=== PATIENT | female | born 1980 | race Caucasian/White ===

== ENCOUNTER → 2018-03-01 | Outpatient (CLI) | payer OTHER ==
--- NOTE | 2018-03-01 12:58 | MR ---
EXAMINATION TYPE: MR brain wo con DATE OF EXAM: 03/01/2018 COMPARISON: NONE HISTORY: Migraine T1-weighted sagittal, T2, FLAIR, and diffusion axial, and T2 coronal coronal views of the brain are s ubmitted. There is no evidence of acute ischemia. The ventricles, basal cisterns, and sulci overlying the conv exities are consistent with the patient's age. There is no mass effect. Craniocervical junction maintained. Sella turcica has a normal appearance. No cerebellopontine angle mass. Changes of chronic sinusitis noted. White matter: There are approximately 5 focal areas of abnormal signal involving the frontal white ma tter bilaterally which are nonspecific. No callosal lesions. No lesions perpendicular to the ventricu lar system. No subcortical lesions. IMPRESSION: 1. No acute intracranial process. 2. Changes of chronic sinusitis. 3. Minimal nonspecific white matter changes can be seen with migraine headaches. Other etiologies gayatri an remote microvascular ischemia or demyelinating process not entirely excluded correlate clinically.
== END | disposition home or self-care (01) ==
LOC: RADMRIMAIN 12:00
PROVIDERS: ATTEND Psychiatry & Neurology Neurology
DX: G43.909 Migraine, unspecified, not intractable, without status migrainosus (principal); R90.89 Other abnormal findings on diagnostic imaging of central nervous system
CPT/HCPCS: 70551

== ENCOUNTER → 2019-02-07 | Day surgery (SDC) | payer OTHER ==
[2019-02-03 13:19] VITALS: BMI 27.8
[~2019-02-07] MED LIST: LACTATED RINGERS 1,000 ML IV SCH; LIDOCAINE 1% INJ 10MG/ML (20 ML MDV) ONE; PROPOFOL 10 MG/ML 20 ML VIAL IV ONE
[2019-02-07 08:31] VITALS: RESP 16; TEMP 98.5
--- NOTE | 2019-02-07 09:42 | P.PCN ---
Date of Procedure: 02/07/19 Procedure(s) Performed: Procedure: Esophagogastroduodenoscopy and biopsy. Preoperative diagnosis: Gastroesophageal reflux symptoms not responding to therapy. Postoperative diagnosis: 1. Small sliding hiatal hernia with no obvious esophagitis or complicated reflux disease. 2. Mild antral gastritis. 3. Bi opsies obtained from the duodenum, antrum and esophagus. Preparation and sedation: Was provided by anesthesia. Brief clinical history: The patient is a 38-year-old female was been having issues with burping and globus sensation and reflux type symptoms for the last 2 years not responding to medical therapy. There is history of food ALLERGY to shellfish and history of sinus surgery. This evaluation is to assess for esophagitis, complicated reflux disease or other pathology. Procedure: With the patient on her left lateral decubitus position and after informed consent and adequate sedation, the Olympus GIF H119 video upper endoscope was used and was advanced under direct vision through the cricopharyngeus down the esophagus. GE junction was around 42-43 cm from the incisors and there was a small sliding hiatal hernia but no obvious esophagitis or complicated reflux disease. The endoscope was then passed into the stomach which was insufflated with air and inspected in detail including the retroflex view in the cardia. There was some mottling and erythema in the antrum but no ulcers or erosions. Pyloric channel, duodenal bulb, post bulbar area and descending duodenum appeared within normal limits. I obtained biopsies from the duodenum, antrum and esophagus then the endoscope was withdrawn. The patient tolerated the procedure well. Plan: The patient was reassured. Will await biopsy results and make further plans based on her course and biopsy results. I will keep you updated on her progress.
[2019-02-07 10:38] VITALS: BP 102/73; PULSE 76
== END | disposition home or self-care (01) ==
LOC: ORWHC2ENDO 08:03
DX: K21.9 Gastro-esophageal reflux disease without esophagitis (principal); K29.50 Unspecified chronic gastritis without bleeding; K44.9 Diaphragmatic hernia without obstruction or gangrene; Z91.013 Allergy to seafood; E07.9 Disorder of thyroid, unspecified; Z79.890 Hormone replacement therapy; Z79.899 Other long term (current) drug therapy
CPT/HCPCS: 81025; 88305; 43239; J2001; J2704

== ENCOUNTER → 2019-06-13 | Outpatient (CLI) | payer OTHER ==
--- NOTE | 2019-06-14 11:48 | MM ---
Reason for exam: screening (asymptomatic). Last mammogram was performed 3 years and 8 months ago. History: Patient is nulliparous. Benign US biopsy breast VAD LT of the left breast, October 15, 2015. Benign excisional biopsy of the right breast, 1994. Took progesterone for 1 year. Physical Findings: A clinical breast exam by your physician is recommended on an annual basis and results should be correlated with mammographic findings. MG Screening Mammo w CAD Bilateral CC and MLO view(s) were taken. Prior study comparison: October 01, 2015, bilateral MG 3d diag mammo w/cad [facility]. The breast tissue is heterogeneously dense. This may lower the sensitivity of mammography. No suspicious abnormality. No significant changes when compared with prior studies. ASSESSMENT: Negative, BI-RAD 1 RECOMMENDATION: Routine screening mammogram of both breasts in 1 year.
== END | disposition home or self-care (01) ==
LOC: RADMAMWWP 11:36
PROVIDERS: ATTEND Obstetrics & Gynecology
DX: Z12.31 Encounter for screening mammogram for malignant neoplasm of breast (principal)
CPT/HCPCS: 77067

== ENCOUNTER → 2019-12-05 | Outpatient (CLI) | payer OTHER ==
--- NOTE | 2019-12-05 15:54 | US ---
EXAMINATION TYPE: US thyroid st tissue head/neck DATE OF EXAM: 12/05/2019 COMPARISON: NONE CLINICAL HISTORY: E04.1 Thyroid Nodule. follow up exam, known Deuce's, on meds GLAND SIZE: Right Lobe: 4.7 x 1.6 x 1.9 cm Overall Parenchyma: heterogenous Left Lobe: 5.3 x 1.5 x 1.8 cm Overall Parenchyma: heterogeneous Isthmus Thickness: 0.4 cm There is diffuse hypervascularity of the thyroid gland. NODULES RIGHT: # of nodules measured on right: 0 LEFT: # of nodules measured on left: 0 ISTHMUS: # of nodules measured in the isthmus: 0 Bilateral neck scanned, no evidence of lymphadenopathy. IMPRESSION: Diffusely heterogenous and hypervascular thyroid gland. Correlate for acute on chronic th yroiditis.
== END | disposition home or self-care (01) ==
LOC: RADUSWWP 15:15
PROVIDERS: ATTEND Family Medicine
DX: E07.89 Other specified disorders of thyroid (principal)
CPT/HCPCS: 76536

== ENCOUNTER 2020-04-22 23:52 | Emergency (ER) | payer OTHER ==
[2020-04-22 23:58] VITALS: BP 160/97; PULSE 75; RESP 16; TEMP 98.1
[2020-04-23] MEDS ORDERED: LIDOCAINE 1% INJ 10MG/ML (20 ML MDV) SQ STA (00:22)
[2020-04-23] MEDS ORDERED: DIPH,PERTUS(ACELL)TETVAC-LF 0.5 ML VIAL IM ONE (00:22)
--- NOTE | 2020-04-23 00:26 | ED ---
General Adult HPI - General Chief complaint: Wound/Laceration Stated complaint: RT finger lac Time Seen by Provider: 04/23/20 00:02 Source: patient, RN notes reviewed, old records reviewed Mode of arrival: ambulatory Limitations: no limitations - History of Present Illness Initial comments: 39-year-old female patient with no pertinent past medical history presents ED for chief complaint of laceration to second digit on right hand. Patient reports that she was cleaning up in a kitchen. She reports that she grabbed a clean pizza cutter and while she was moving and she actually brought it across the second digit of her right hand. Patient does have a semi-laceration to the dorsal aspect. Does not know date of last tetanus. Has full active range of motion sensation. Denies any other complaints. Systemic: Pt denies fatigue, fever/chills, rash. Pt denies weakness, night sweats, weight loss. Neuro: Pt denies headache, visual disturbances, syncope or pre-syncope. HEENT: Pt denies ocular discharge or irritation, otalgia, rhinorrhea, pharyngitis or notable lymphadenopathy. Cardiopulmonary: Pt denies chest pain, SOB, heart palpitations, dyspnea on exertion. Abdominal/GI: Pt denies abdominal pain, n/v/d. : Pt denies dysuria, burning w/ urination, frequency/urgency. Denies new onset urinary or bowel incontinence. MSK: Pt denies myalgia, loss of strength or function in extremities. Neuro: Pt denies new onset weakness, paresthesias. - Related Data Home Medications Medication Instructions Recorded Confirmed Control (Unknown Name) 1 tablet PO DAILY 02/03/19 Galcanezumab-Gnlm [Emgality] 120 mg SQ Q30D 02/03/19 02/07/19 Levothyroxine Sodium [Levoxyl] 88 mcg PO DAILY 02/03/19 02/07/19 SUMAtriptan SUCCINATE [Imitrex] 50 mg PO DAILY PRN 02/03/19 02/07/19 Previous Rx's Medication Instructions Recorded EPINEPHrine (Auto Inject) [Epipen] 0.3 mg IM ONCE PRN #1 syringe 01/11/15 Allergies Allergy/AdvReac Type Severity Reaction Status Date / Time iodine Allergy Anaphylaxis Verified 02/07/19 08:25 shellfish derived [Shellfish] Allergy Anaphylaxis Verified 04/08/19 08:25 Review of Systems ROS Statement: Those systems with pertinent positive or pertinent negative responses have been documented in the HPI. ROS Other: All systems not noted in ROS Statement are negative. Past Medical History Past Medical History: GERD/Reflux, Thyroid Disorder Additional Past Medical History / Comment(s): MIGRAINE HEADACHE, History of Any Multi-Drug Resistant Organisms: None Reported Past Surgical History: No Surgical Hx Reported Additional Past Surgical History / Comment(s): LAPAROSCOPIC EXAM, SINUS SURGERY Past Psychological History: No Psychological Hx Reported Smoking Status: Former smoker - Past Family History Mother Family Medical History: No Reported History General Exam - General Exam Comments Initial Comments: Constitutional: NAD, AOX3, Pt has pleasant affect. HEENT: NC/AT, trachea midline. External ears appear normal, without discharge. Mucous membranes moist. Eyes PERRLA, EOM intact. There is no scleral icterus. No pallor noted. Cardiopulmonary: RRR, no murmurs, rubs or gallops, no JVD noted. Lungs CTAB in anterior and posterior lozano. No peripheral edema. Neuro: CN II-XII grossly intact. No nuchal rigidity. No raccon eyes MSK: 1.5 cm laceration to the dorsal aspect second digit of the right hand. Full range of motion of digit. Sensation is intact. Capillary refill less than 2 seconds. Wound is vigorously irrigated. Approximately 3 simple interrupted sutures. Neurovascular intact before and after suture placement. Radial pulse +2. Limitations: no limitations Course Vital Signs 04/22/20 23:54 Temperature 98.1 F Pulse Rate 75 Respiratory 16 Rate Blood Pressure 160/97 O2 Sat by Pulse 100 Oximetry Procedures - Laceration Laceration #1 Consent Obtained: verbal consent Indication: laceration Site: hand (2nd digit R hand dorsal aspect) Size (cm): 1 (1.5) Depth: simple, single layer Pre-repair: wound explored, irrigated extensively, deep structures intact (No ligamentous osseous involvement or foreign body.) Type of Sutures: nylon Size of Sutures: 5-0 Number of Sutures: 3 Technique: simple, interrupted Patient Tolerated Procedure: well, no complications Medical Decision Making - Medical Decision Making 39-year-old female patient with seizure evaluation laceration. Patient will tender stable, afebrile. Laceration was irrigated and approximated. Full active range of motion for and after procedure. Tetanus is updated. Patient will be discharged with outpatient follow-up with primary care provider and return precautions. Case discussed with Dr. Gant. Disposition Clinical Impression: Laceration Disposition: HOME SELF-CARE Condition: Stable Instructions (If sedation given, give patient instructions): Care For Your Stitches (ED), Laceration (ED) Additional Instructions: Please return for suture removal: Hand: 7-10 days Please monitor for signs and symptoms of infection including: redness, warmth, drainage, discharge. Please return to ED if these signs or symptoms occur, new signs or symptoms develop or if condition worsens in anyway. Follow-up with primary care provider in 1 to 2 days. Is patient prescribed a controlled substance at d/c from ED?: No Referrals: Con Allison MD [Primary Care Provider] - 1-2 days
== END 2020-04-23 00:58 | disposition home or self-care (01) ==
LOC: EC 23:52
DX: S61.210A Laceration without foreign body of right index finger without damage to nail, initial encounter (principal); G43.909 Migraine, unspecified, not intractable, without status migrainosus; E07.9 Disorder of thyroid, unspecified; Z79.890 Hormone replacement therapy; Z79.3 Long term (current) use of hormonal contraceptives; Z23 Encounter for immunization; Z87.891 Personal history of nicotine dependence; Z91.048 Other nonmedicinal substance allergy status; Z91.013 Allergy to seafood; W26.0XXA Contact with knife, initial encounter; Y93.89 Activity, other specified; Y92.000 Kitchen of unspecified non-institutional (private) residence as the place of occurrence of the external cause
CPT/HCPCS: 90715; 90471; 99283; 12001; J2001

== ENCOUNTER 2020-05-13 18:11 | Emergency (ER) | payer OTHER ==
[2020-05-13 18:17] VITALS: BP 167/96; PULSE 77; RESP 20; TEMP 98.8
[2020-05-13] MEDS ORDERED: DIPH,PERTUS(ACELL)TETVAC-LF 0.5 ML VIAL IM ONE (18:34)
[2020-05-13] MEDS ORDERED: LIDOCAINE 1% INJ 10MG/ML (20 ML MDV) SQ ONE (18:47)
--- NOTE | 2020-05-13 18:52 | ED ---
Wound/Laceration HPI - General Chief Complaint: Wound/Laceration Stated Complaint: toe injury Time Seen by Provider: 05/13/20 18:24 Source: patient, RN/MD, RN notes reviewed, old records reviewed Mode of arrival: ambulatory Limitations: no limitations - History of Present Illness Initial Comments: Patient is a 39-year-old female who presents emergency department today with a laceration between the third and fourth left toe after jumping off the boat and her toe caught on the ladder. Patient reports that she felt her toe separate. She felt instant pain when she was in the water. Patient states she took her foot out and noted swelling over the fourth toe and laceration deformity between the toes. She reports that she is able to move the toes of the time and has sensation. - Related Data Home Medications Medication Instructions Recorded Confirmed Control (Unknown Name) 1 tablet PO DAILY 02/03/19 Galcanezumab-Gnlm [Emgality] 120 mg SQ Q30D 02/03/19 02/07/19 Levothyroxine Sodium [Levoxyl] 88 mcg PO DAILY 02/03/19 02/07/19 SUMAtriptan SUCCINATE [Imitrex] 50 mg PO DAILY PRN 02/03/19 02/07/19 Previous Rx's Medication Instructions Recorded EPINEPHrine (Auto Inject) [Epipen] 0.3 mg IM ONCE PRN #1 syringe 01/11/15 Cephalexin [Keflex] 500 mg PO Q8HR #21 cap 05/13/20 Allergies Allergy/AdvReac Type Severity Reaction Status Date / Time iodine Allergy Anaphylaxis Verified 05/13/20 18:18 shellfish derived [Shellfish] Allergy Anaphylaxis Verified 05/13/20 18:18 Review of Systems ROS Statement: Those systems with pertinent positive or pertinent negative responses have been documented in the HPI. ROS Other: All systems not noted in ROS Statement are negative. Past Medical History Past Medical History: GERD/Reflux, Thyroid Disorder Additional Past Medical History / Comment(s): MIGRAINE HEADACHE, History of Any Multi-Drug Resistant Organisms: None Reported Past Surgical History: No Surgical Hx Reported Additional Past Surgical History / Comment(s): LAPAROSCOPIC EXAM, SINUS SURGERY Past Psychological History: No Psychological Hx Reported Smoking Status: Former smoker Past Alcohol Use History: None Reported Past Drug Use History: None Reported - Past Family History Mother Family Medical History: No Reported History General Exam - General Exam Comments Initial Comments: 39 year old female, no distress. Limitations: no limitations General appearance: alert, in no apparent distress Head exam: Present: atraumatic, normocephalic, normal inspection Eye exam: Present: normal appearance, PERRL, EOMI. Absent: scleral icterus, conjunctival injection, periorbital swelling ENT exam: Present: normal exam, mucous membranes moist Neck exam: Present: normal inspection. Absent: tenderness, meningismus, lymphadenopathy Respiratory exam: Present: normal lung sounds bilaterally. Absent: respiratory distress, wheezes, rales, rhonchi, stridor Cardiovascular Exam: Present: regular rate, normal rhythm, normal heart sounds. Absent: systolic murmur, diastolic murmur, rubs, gallop, clicks GI/Abdominal exam: Present: soft, normal bowel sounds. Absent: distended, tenderness, guarding, rebound, rigid Extremities exam: Present: normal inspection, full ROM, normal capillary refill. Absent: tenderness, pedal edema, joint swelling, calf tenderness Left Lower Leg exam: Present: normal inspection, full ROM Ankle exam: Present: normal inspection, full ROM Foot/Toe exam: Present: laceration (linear laceration between 4th and 3rd toe). Absent: normal inspection Neurovascular tendon exam: Present: no vascular compromise Gait: observed and normal Back exam: Present: normal inspection Neurological exam: Present: alert, oriented X3, CN II-XII intact Course Vital Signs 05/13/20 18:15 Temperature 98.8 F Pulse Rate 77 Respiratory 20 Rate Blood Pressure 167/96 O2 Sat by Pulse 100 Oximetry Procedures - Laceration Laceration #1 Indication: laceration Site: foot (between 4th and 3rd toe) Size (cm): 3 Description: linear Depth: simple, single layer Anesthetic Used: lidocaine 1% Anesthesia Technique: local infiltration Amount (mls): 5 Pre-repair: wound explored, irrigated extensively Type of Sutures: nylon Size of Sutures: 5-0 Number of Sutures: 6 Technique: simple, interrupted Patient Tolerated Procedure: well, no complications Medical Decision Making - Medical Decision Making 39-year-old female presents response with a laceration over her left foot between the third and fourth toe after jumping off of a boat and catching her foot on the edge of the boat. Patient's laceration was cleaned and closed with 6 sutures. Patient has full range of motion of the toe. X-ray showed no fracture. Discussed putting the Patient on antibiotic to ensure no infection. Patient is agreeable treatment plan will comply. Discussed suture instruction. - Radiology Data Radiology results: report reviewed Neuro foot x-ray. No fracture. Disposition Clinical Impression: Toe laceration Disposition: HOME SELF-CARE Condition: Good Instructions (If sedation given, give patient instructions): Care For Your Stitches (ED), Laceration (ED) Additional Instructions: Please return to the emergency room in 8-10 days to have sutures removed. Please leave wound covered for the first 24-48 hours and then leave open to air after that time. Please use clean soap and water to clean the suture area to prevent scabbing over the top of your sutures. Please watch for any signs of infection which may include but not limited to increased pain, swelling, redness, fever or chills. Please return to the emergency room if any signs of infection do occur. Please return to the emergency room for any other concerns or complications. Prescriptions: Cephalexin [Keflex] 500 mg PO Q8HR #21 cap Is patient prescribed a controlled substance at d/c from ED?: No Referrals: Con Allison MD [Primary Care Provider] - 1-2 days Time of Disposition: 20:00
--- NOTE | 2020-05-13 19:18 | XR ---
EXAMINATION TYPE: XR foot complete LT DATE OF EXAM: 05/13/2020 COMPARISON: NONE HISTORY: Foot pain TECHNIQUE: 3 views FINDINGS: Metatarsals are intact. I see no fracture nor dislocation. Joint spaces are normal. IMPRESSION: Negative left foot exam. No fracture.
== END 2020-05-13 20:08 | disposition home or self-care (01) ==
LOC: EC 18:11
DX: S91.115A Laceration without foreign body of left lesser toe(s) without damage to nail, initial encounter (principal); E07.9 Disorder of thyroid, unspecified; G43.909 Migraine, unspecified, not intractable, without status migrainosus; Z87.891 Personal history of nicotine dependence; Z79.890 Hormone replacement therapy; Z79.899 Other long term (current) drug therapy; Z91.013 Allergy to seafood; Z91.041 Radiographic dye allergy status; W16.712A Jumping or diving from boat striking water surface causing other injury, initial encounter; Y93.39 Activity, other involving climbing, rappelling and jumping off; Y92.89 Other specified places as the place of occurrence of the external cause
CPT/HCPCS: 73630; 99283; J2001

== ENCOUNTER → 2020-08-13 | Outpatient (CLI) | payer OTHER ==
--- NOTE | 2020-08-14 14:11 | MM ---
Reason for exam: screening (asymptomatic). Last mammogram was performed 1 year and 2 months ago. History: Patient is nulliparous. Benign US biopsy breast VAD LT of the left breast, October 15, 2015. Benign excisional biopsy of the right breast, 1994. Took progesterone for 1 year. Physical Findings: A clinical breast exam by your physician is recommended on an annual basis and results should be correlated with mammographic findings. MG Screening Mammo w CAD Bilateral CC and MLO view(s) were taken. Prior study comparison: June 13, 2019, bilateral MG screening mammo w CAD. October 01, 2015, bilateral MG 3d diag mammo w/cad [facility]. The breast tissue is heterogeneously dense. This may lower the sensitivity of mammography. There is chronic nodularity bilaterally. No significant changes when compared with prior studies. ASSESSMENT: Benign, BI-RAD 2 RECOMMENDATION: Routine screening mammogram of both breasts in 1 year.
== END | disposition home or self-care (01) ==
LOC: RADMAMWWP 11:15
PROVIDERS: ATTEND Obstetrics & Gynecology
DX: Z12.31 Encounter for screening mammogram for malignant neoplasm of breast (principal)
CPT/HCPCS: 77067

== ENCOUNTER → 2020-10-22 | Outpatient (CLI) | payer OTHER ==
--- NOTE | 2020-10-22 11:24 | US ---
EXAMINATION TYPE: US abdomen complete DATE OF EXAM: 10/22/2020 COMPARISON: NONE CLINICAL HISTORY: R10.9 Abdominal Pain. On/off reflux and nausea x couple months EXAM MEASUREMENTS: Liver Length: 19.2 cm Gallbladder Wall: 0.1 cm CBD: 0.3 cm Spleen: 10.0 cm Right Kidney: 10.8 x 4.4 x 5.0 cm Left Kidney: 11.1 x 6.5 x 4.7 cm Pancreas: wnl Liver: enlarged, mildly course echotexture Gallbladder: wnl Evidence for sonographic Taveras's sign: no CBD: wnl Spleen: wnl Right Kidney: wnl Left Kidney: limited by overlying bowel gas, 0.4cm echogenic focus mid pole Upper IVC: wnl Abd Aorta: proximal and mid portions wnl, distal portion obscured by overlying midline bowel gas The intrahepatic portion of the IVC and proximal abdominal aorta are within normal limits. There is no evidence of cholelithiasis. Common bile duct is unremarkable. The visualized portions of the chapa creas are homogenous. The spleen is unremarkable. Kidneys are symmetric and free of hydronephrosis. No renal lesions are seen. IMPRESSION: Hepatomegaly with probable underlying hepatic fatty infiltration.
== END | disposition home or self-care (01) ==
LOC: RADUSWWP 10:37
PROVIDERS: ATTEND Family Medicine
DX: R16.0 Hepatomegaly, not elsewhere classified (principal)
CPT/HCPCS: 76700

== ENCOUNTER 2020-12-10 09:53 | Day surgery (SDC) | payer OTHER ==
[2020-12-06 14:44] VITALS: BMI 27.8
[~2020-12-10 09:53] MED LIST changes: -LIDOCAINE 1% INJ 10MG/ML (20 ML MDV) ONE; -PROPOFOL 10 MG/ML 20 ML VIAL IV ONE
[2020-12-10 10:24] VITALS: TEMP 97.7
[2020-12-10] MEDS ORDERED: LIDOCAINE 1% (10MG/ML) FOR IV START INTRADERMA ONE (10:24)
[2020-12-10] MEDS ORDERED: PROPOFOL 10 MG/ML 20 ML VIAL IV ONE (11:15)
[2020-12-10] MEDS ORDERED: LIDOCAINE 1% INJ 10MG/ML (20 ML MDV) ONE (11:15)
[2020-12-10 11:40] VITALS: RESP 16
--- NOTE | 2020-12-10 11:40 | P.PCN ---
Date of Procedure: 12/10/20 Description of Procedure: BRIEF HISTORY: Patient is a pleasant 40-year-old female presenting for outpatient esophagogastroduodenoscopy for evaluation of GERD. Patient reports a long- standing history of reflux which has worsened recently. She reports morning globus. Currently on omeprazole daily with famotidine at night.. PROCEDURE PERFORMED: Esophagogastroduodenoscopy with biopsy. PREOPERATIVE DIAGNOSIS: GERD, globus. ESTIMATED BLOOD LOSS: Minimal. IV sedation per anesthesia. PROCEDURE: After informed consent was obtained, the patient was brought into the endoscopy unit. IV sedation was administered by Anesthesia under continuous monitoring. Initially the Olympus GIF-190 video endoscope was inserted into the mouth. Esophagus intubated without any difficulty. It was gradually advanced into the stomach and duodenum and carefully examined. The bulb and the second part of the duodenum appeared normal, with biopsies taken. The scope at this time was withdrawn to the stomach, adequately insufflated with air, and upon careful examination, mucosa of the antrum, body, cardia and the fundus appeared normal, except for a moderate amount of food debris retained in the stomach as well as some mild scattered erythema in antrum and body suggestive of mild gastritis with biopsies taken. The scope was then withdrawn into the esophagus. The GE junction was located at 39 cm from the incisors and biopsied. The esophagus appeared normal. There were no erosions or ulcerations seen and the patient tolerated the procedure well. IMPRESSION: 1. Mild gastritis. 2. Moderate amount of retained food in the stomach. 3. Biopsies of the duodenum, antrum body and GE junction. RECOMMENDATIONS: The findings of this examination were discussed with the patient. Continue omeprazole daily and Pepcid at night. Continue other medications. GERD lifestyle modifications discussed including not eating 3 hours prior to bed, looking have her bed, and avoiding trigger foods. Given findings of retained food in the stomach, can consider gastric emptying study to rule out gastroparesis.
[2020-12-10 11:56] VITALS: BP 142/91; PULSE 64
== END 2020-12-10 12:45 | disposition home or self-care (01) ==
LOC: ORWHC2ENDO 09:53
PROVIDERS: ATTEND Internal Medicine
DX: K29.50 Unspecified chronic gastritis without bleeding (principal); K21.9 Gastro-esophageal reflux disease without esophagitis; E07.9 Disorder of thyroid, unspecified; G43.909 Migraine, unspecified, not intractable, without status migrainosus; Z98.890 Other specified postprocedural states; Z90.89 Acquired absence of other organs; Z79.890 Hormone replacement therapy; Z87.891 Personal history of nicotine dependence; Z79.899 Other long term (current) drug therapy; Z91.013 Allergy to seafood; Z91.048 Other nonmedicinal substance allergy status
CPT/HCPCS: 81025; 88305; 43239; J2001; J2704

== ENCOUNTER 2021-01-12 21:10 | Emergency (ER) | payer OTHER ==
[2021-01-12 21:14] VITALS: BP 140/84; PULSE 88; RESP 18; TEMP 99
[2021-01-12] MEDS ORDERED: HYDROmorphone 1 MG/ML 1 ML SYRINGE IVP STA (21:31)
[2021-01-12] MEDS ORDERED: CYCLOBENZAPRINE 10 MG TAB PO STA (21:31)
[2021-01-12] MEDS ORDERED: methylPREDNISolone SOD SUCCI 125 MG/2 ML VIAL IM STA (21:31)
--- NOTE | 2021-01-12 21:35 | ED ---
Back Pain HPI - General Chief Complaint: Back Pain/Injury Stated Complaint: Back pain Source: patient, RN notes reviewed Limitations: no limitations - History of Present Illness Initial Comments: Patient is a 40-year-old female that presents to emergency department complaining of lower back pain/tightness that radiates pain down both legs. She notes that she was on vacation for 2 weeks in [place] and walk on the beach is picking up seashells most the time in a bent over hunched state. She noted that she was also given unfamiliar bed. She noted that while in for she noted that she was having some back tightness and issues but just disregard them. She noted that she landed in the [place] last night at midnight area she noted that she does not have a history of sciatica or any back pain. She noted that today was the first day of work she is missing her life. Is in a moderate amount of pain and discomfort and would like some pain medication. She states the pain has been constant for last like 7-1/2 hours. He'll apply or she could walk from her bed to her bathroom without expressed excruciating pain. Her guest noted that when she up and walked after a few steps she couldn't walk due to pain caused by weightbearing. She denied any decrease in strength sensation numbness tingling chest pain shortness breath headache nausea vomiting diarrhea comes patient 50 chills. - Related Data Home Medications Medication Instructions Recorded Confirmed Galcanezumab-Gnlm [Emgality] 120 mg SQ Q30D 02/03/19 12/10/20 Levothyroxine Sodium [Levoxyl] 88 mcg PO DAILY 02/03/19 12/10/20 SUMAtriptan SUCCINATE [Imitrex] 50 mg PO DAILY PRN 02/03/19 12/10/20 Famotidine [Pepcid] 40 mg PO HS 12/06/20 12/10/20 Omeprazole 40 mg PO DAILY 12/06/20 12/10/20 Setlakin 1 tab PO DAILY 12/06/20 12/10/20 Previous Rx's Medication Instructions Recorded EPINEPHrine (Auto Inject) [Epipen] 0.3 mg IM ONCE PRN #1 syringe 01/11/15 Cyclobenzaprine [Flexeril] 5 mg PO TID 10 Days #30 tablet 01/12/21 predniSONE 50 mg PO DAILY #5 tab 01/12/21 Allergies Allergy/AdvReac Type Severity Reaction Status Date / Time iodine Allergy Anaphylaxis Verified 01/12/21 21:14 shellfish derived [Shellfish] Allergy Anaphylaxis Verified 01/12/21 21:14 Review of Systems ROS Statement: Those systems with pertinent positive or pertinent negative responses have been documented in the HPI. ROS Other: All systems not noted in ROS Statement are negative. Past Medical History Past Medical History: GERD/Reflux, Thyroid Disorder Additional Past Medical History / Comment(s): MIGRAINE HEADACHE, History of Any Multi-Drug Resistant Organisms: None Reported Past Surgical History: Tonsillectomy Additional Past Surgical History / Comment(s): LAPAROSCOPIC EXAM, SINUS SURGERY Past Anesthesia/Blood Transfusion Reactions: No Reported Reaction Past Psychological History: No Psychological Hx Reported Smoking Status: Former smoker Past Alcohol Use History: None Reported Past Drug Use History: None Reported - Past Family History Mother Family Medical History: No Reported History General Exam Limitations: no limitations General appearance: alert, in no apparent distress Head exam: Present: atraumatic, normocephalic, normal inspection Eye exam: Present: normal appearance, PERRL, EOMI. Absent: scleral icterus, conjunctival injection, periorbital swelling ENT exam: Present: normal exam, mucous membranes moist Neck exam: Present: normal inspection. Absent: tenderness, meningismus, lymphadenopathy Respiratory exam: Present: normal lung sounds bilaterally. Absent: respiratory distress, wheezes, rales, rhonchi, stridor Cardiovascular Exam: Present: regular rate, normal rhythm, normal heart sounds. Absent: systolic murmur, diastolic murmur, rubs, gallop, clicks GI/Abdominal exam: Present: soft, normal bowel sounds. Absent: distended, tenderness, guarding, rebound, rigid Extremities exam: Present: normal inspection, full ROM, normal capillary refill. Absent: tenderness, pedal edema, joint swelling, calf tenderness Neurological exam: Present: alert, oriented X3, CN II-XII intact Expanded Patient oriented to: Present: person, place, time Speech: Present: fluid speech Motor strength exam: RUE: 5, LUE: 5, RLE: 5, LLE: 5 Psychiatric exam: Present: normal affect, normal mood Skin exam: Present: warm, dry, intact, normal color. Absent: rash Course Vital Signs 01/12/21 21:11 Temperature 99.0 F Pulse Rate 88 Respiratory 18 Rate Blood Pressure 140/84 O2 Sat by Pulse 100 Oximetry Medical Decision Making - Medical Decision Making 40-year-old female complaining of low back pain which radiates down both legs. X-ray of the lumbar spine, 10 mg of Flexeril, 1 mg of Dilaudid, 125 mg of Solu- Medrol ordered. Case discussed with Dr. Nagel, patient to discharge home. - Radiology Data Radiology results: report reviewed, image reviewed Normal lumbar spine exam Disposition Clinical Impression: Bilateral sciatica, Spasm of muscle of lower back Disposition: HOME SELF-CARE Condition: Stable Instructions (If sedation given, give patient instructions): Acute Low Back Pain (ED) Additional Instructions: Please return to the Emergency Department if symptoms worsen or any other concerns. Follow-up with primary care in 2-4 days. Take prescription medications as directed. Avoid any strenuous activity, bending over or anything that makes the lower back hurt or tight. Prescriptions: Cyclobenzaprine [Flexeril] 5 mg PO TID 10 Days #30 tablet predniSONE 50 mg PO DAILY #5 tab Is patient prescribed a controlled substance at d/c from ED?: No Referrals: Con Allison MD [Primary Care Provider] - 1-2 days Time of Disposition: 22:21
[2021-01-12] MEDS ORDERED: ACET/COD 300 MG/30 MG STARTER PACK 6 TAB BTL PO STA (22:07)
--- NOTE | 2021-01-12 22:16 | XR ---
EXAMINATION TYPE: XR lumbar spine 2 or 3V DATE OF EXAM: 01/12/2021 COMPARISON: NONE HISTORY: Back pain TECHNIQUE: 3 views FINDINGS: Vertebra have normal spacing and alignment. Posterior elements are intact. There is no comp ression fracture. Sacroiliac joints are normal. IMPRESSION: Normal lumbar spine exam.
== END 2021-01-12 22:35 | disposition home or self-care (01) ==
LOC: EC 21:10
DX: M54.42 Lumbago with sciatica, left side (principal); M54.41 Lumbago with sciatica, right side; M62.830 Muscle spasm of back; K21.9 Gastro-esophageal reflux disease without esophagitis; E07.9 Disorder of thyroid, unspecified; Z90.09 Acquired absence of other part of head and neck; Z87.891 Personal history of nicotine dependence
CPT/HCPCS: 72100; 99283; 96374; 96372; J2930; J1170

== ENCOUNTER → 2021-12-09 | Outpatient (CLI) | payer OTHER ==
--- NOTE | 2021-12-10 11:19 | MM ---
Reason for exam: screening (asymptomatic). Last mammogram was performed 1 year and 4 months ago. History: Patient is nulliparous. Benign US biopsy breast VAD LT of the left breast, October 15, 2015. Benign excisional biopsy of the right breast, 1994. Took progesterone for 1 year. Physical Findings: A clinical breast exam by your physician is recommended on an annual basis and results should be correlated with mammographic findings. MG 3D Screening Mammo W/Cad Bilateral CC and MLO view(s) were taken. Prior study comparison: August 13, 2020, bilateral MG screening mammo w CAD. June 13, 2019, bilateral MG screening mammo w CAD. The breast tissue is heterogeneously dense. This may lower the sensitivity of mammography. Finding: There is an intermediate concern, suspicious 8 mm high density, oval mass in the upper outer quadrant of the right breast on MLO consistent with possible mass. ASSESSMENT: Incomplete: need additional imaging evaluation, BI-RAD 0 RECOMMENDATION: Ultrasound of the right breast. [facility] will attempt to contact patient to return for ultrasound.
== END | disposition home or self-care (01) ==
LOC: RADMAMWWP 14:21
PROVIDERS: ATTEND Family Medicine
DX: Z12.31 Encounter for screening mammogram for malignant neoplasm of breast (principal)
CPT/HCPCS: 77063; 77067

== ENCOUNTER → 2021-12-13 | Outpatient (CLI) | payer OTHER ==
--- NOTE | 2021-12-13 11:11 | USB ---
Reason for exam: additional evaluation requested from abnormal screening. History: Patient is nulliparous. Benign US biopsy breast VAD LT of the left breast, October 15, 2015. Benign excisional biopsy of the right breast, 1994. Took progesterone for 1 year. Physical Findings: Nurse did not find any significant physical abnormalities on exam. US Breast Workup Limited RT Right limited breast ultrasound including focal area of concern, retroareolar and axilla demonstrates no cystic or solid lesion seen. These results were verbally communicated with the patient and result sheet given to the patient on 12/13/21. ASSESSMENT: Negative, BI-RAD 1 RECOMMENDATION: Follow-up diagnostic mammogram of the right breast in 6 months.
== END | disposition home or self-care (01) ==
LOC: RADUSWWP 08:31
PROVIDERS: ATTEND Family Medicine
DX: R92.8 Other abnormal and inconclusive findings on diagnostic imaging of breast (principal)

== ENCOUNTER → 2022-07-02 | Outpatient (CLI) | payer OTHER ==
--- NOTE | 2022-07-02 10:09 | MM ---
Reason for Exam: Follow-up at short interval from prior study. Last screening mammogram was performed 6 month(s) ago. Patient History: Menarche at age 10. Patient has no children. Premenopausal. Currently using Progesterone, beginning at age 33 for 1 year. 1994, Benign Excisional Biopsy on the right side. 10/15/2015, Benign Core Biopsy on the left side. Risk Values: Geri 5 year model risk: 2.1%. NCI Lifetime model risk: 16.9%. Prior Study Comparison: 10/01/2015 Bilateral Diagnostic Mammogram, [facility]. 06/13/2019 Bilateral Screening Mammogram, [facility]. 08/13/2020 Bilateral Screening Mammogram, [facility]. 12/09/2021 Bilateral Screening Mammogram, [facility]. Tissue Density: Right: The breast tissue is heterogeneously dense. This may lower the sensitivity of mammography. Findings: Analyzed By CAD. No discrete mass seen. No suspicious calcifications noted. Overall Assessment: Benign, BI-RAD 2 Management: Screening Mammogram of both breasts in 6 months. A clinical breast exam by your physician is recommended on an annual basis and results should be correlated with mammographic findings. This exam should not preclude additional follow-up of suspicious palpable abnormalities. Results were given to the patient verbally at the time of exam. Electronically signed and approved by: Jm Kingston M.D. Radiologis
== END | disposition home or self-care (01) ==
LOC: RADMAMWWP 09:18
PROVIDERS: ATTEND Family Medicine
DX: R92.8 Other abnormal and inconclusive findings on diagnostic imaging of breast (principal)
CPT/HCPCS: 77061; 77065

== ENCOUNTER → 2023-03-09 | Outpatient (CLI) | payer OTHER ==
--- NOTE | 2023-03-10 08:45 | MM ---
Reason for Exam: Screening (asymptomatic). Last mammogram was performed 1 year(s) and 3 month(s) ago. Patient History: Menarche at age 10. Patient has no children. Premenopausal. Currently using Progesterone, beginning at age 33 for 1 year. 1994, Benign Excisional Biopsy on the right side. 10/15/2015, Benign Core Biopsy on the left side. Last menstrual period: 02/19/2023 Risk Values: Geri 5 year model risk: 2.3%. NCI Lifetime model risk: 16.7%. Prior Study Comparison: 08/13/2020 Bilateral Screening Mammogram, [facility]. 12/09/2021 Bilateral Screening Mammogram, [facility]. 07/02/2022 Right MG 3D diag mammo w/cad RT, [facility]. Tissue Density: The breast tissue is extremely dense which could obscure a lesion on mammography. Findings: Analyzed By CAD. There is no suspicious group of microcalcifications or new suspicious mass in either breast. Chronic nodularity within both breasts. Benign-appearing round calcifications within both breasts. Overall Assessment: Benign, BI-RAD 2 Management: Screening Mammogram of both breasts in 1 year. A clinical breast exam by your physician is recommended on an annual basis and results should be correlated with mammographic findings. Electronically signed and approved by: Narciso Santiago D.O.
== END | disposition home or self-care (01) ==
LOC: RADMAMWWP 11:56
PROVIDERS: ATTEND Obstetrics & Gynecology
DX: Z12.31 Encounter for screening mammogram for malignant neoplasm of breast (principal); R92.8 Other abnormal and inconclusive findings on diagnostic imaging of breast
CPT/HCPCS: 77063; 77067

== ENCOUNTER 2024-03-15 10:47 | Emergency (ER) | payer OTHER ==
[2024-03-15 11:17] VITALS: RESP 18
[2024-03-15] MEDS: SODIUM CHLORIDE 0.9% 1,000 ML IV STA (12:04)
--- NOTE | 2024-03-15 12:23 | ED ---
General Adult HPI - General Chief complaint: Abdominal Pain Stated complaint: Abd pain Time Seen by Provider: 03/15/24 11:27 Source: patient, RN notes reviewed, old records reviewed Mode of arrival: ambulatory Limitations: no limitations - History of Present Illness Initial comments: Patient is a 43-year-old female who presents emergency department complaining of abdominal pain. States that started this morning. Left flank pain in nature w ith radiation from the left back to the left flank to the left groin. No dysuria or hematuria. States she was having a hard time peeing it felt like. Denies any significant past medical history other than GERD. No significant history of abdominal surgeries. Think she may have a kidney stone. Endorses mild nausea which is passed. Denies any chest pain or shortness of breath. Denies any fevers. Did take some CBD therapy at home prior to arrival which she thinks is helping with the pain and the nausea at this time. Presents for further evaluation. Does not believe she is . - Related Data Home Medications Medication Instructions Recorded Confirmed Galcanezumab-Gnlm [Emgality] 120 mg SQ Q30D 02/03/19 12/10/20 Levothyroxine Sodium [Levoxyl] 88 mcg PO DAILY 02/03/19 12/10/20 SUMAtriptan succinate [Imitrex] 50 mg PO DAILY PRN 02/03/19 12/10/20 Famotidine [Pepcid] 40 mg PO HS 12/06/20 12/10/20 Omeprazole 40 mg PO DAILY 12/06/20 12/10/20 Setlakin 1 tab PO DAILY 12/06/20 12/10/20 Previous Rx's Medication Instructions Recorded EPINEPHrine (Auto Inject) [Epipen] 0.3 mg IM ONCE PRN #1 syringe 01/11/15 Cyclobenzaprine [Flexeril] 5 mg PO TID 10 Days #30 tablet 01/12/21 predniSONE 50 mg PO DAILY #5 tab 01/12/21 Allergies Allergy/AdvReac Type Severity Reaction Status Date / Time iodine Allergy Anaphylaxis Verified 03/15/24 11:04 shellfish derived [Shellfish] Allergy Anaphylaxis Verified 03/15/24 11:04 Review of Systems ROS Statement: Those systems with pertinent positive or pertinent negative responses have been documented in the HPI. Review of Systems: CONST: Denies fever EYES: Denies blurry vision ENT: Denies nasal congestion C/V: Denies Chest pain RESP: Denies shortness of breath GI: Endorses abdominal pain : Denies dysuria SKIN: Denies rash. MSK: Denies joint pain. NEURO: Denies headache ROS Other: All systems not noted in ROS Statement are negative. Past Medical History Past Medical History: GERD/Reflux, Thyroid Disorder Additional Past Medical History / Comment(s): MIGRAINE HEADACHE, History of Any Multi-Drug Resistant Organisms: None Reported Past Surgical History: Tonsillectomy Additional Past Surgical History / Comment(s): LAPAROSCOPIC EXAM, SINUS SURGERY Past Anesthesia/Blood Transfusion Reactions: No Reported Reaction Past Psychological History: No Psychological Hx Reported Smoking Status: Former smoker Past Alcohol Use History: None Reported Past Drug Use History: None Reported - Past Family History Mother Family Medical History: No Reported History General Exam - General Exam Comments Initial Comments: General: Appears in no acute distress. HEAD: Normal with no signs of head trauma. EYES: PERRLA, EOMI, conjunctiva normal, no discharge. ENT: Hearing grossly intact, normal oropharynx. RESPIRATORY: Clear breath sounds bilaterally. No wheezes, rales, or rhonchi. C/V: Regular rate and rhythm. S1 and S2 auscultated, no edema, peripheral pulses 2+ and intact throughout ABD: Abdomen soft, nondistended. Mildly tender to palpation in the left flank. No guarding. No rebound tenderness. No peritoneal signs. EXT: Normal range of motion, no obvious deformity SKIN: No rashes or lesions observed on exposed skin. NEURO: Alert and oriented x 4. Limitations: no limitations Course Vital Signs 03/15/24 03/15/24 10:59 14:29 Temperature 97.4 F L 98 F Pulse Rate 71 70 Respiratory 18 18 Rate Blood Pressure 123/85 125/85 O2 Sat by Pulse 100 100 Oximetry Medical Decision Making - Medical Decision Making Was pt. sent in by a medical professional or institution (, PA, FORMING PRESS OPERATOR, urgent care, hospital, or halfway...) When possible be specific @ -No Did you speak to anyone other than the patient for history (EMS, parent, family, police, friend...)? What history was obtained from this source @ -No Did you review nursing and triage notes (agree or disagree)? Why? @ -I reviewed and agree with nursing and triage notes Were old charts reviewed (outside hosp., previous admission, EMS record, old EKG, old radiological studies, urgent care reports/EKG's, halfway records)? Report findings @ -No old charts were reviewed Differential Diagnosis (chest pain, altered mental status, abdominal pain women, abdominal pain men, vaginal bleeding, weakness, fever, dyspnea, syncope, headache, dizziness, GI bleed, back pain, seizure, CVA, palpatations, mental health, musculoskeletal)? @ -Differential Abdominal Pain Women: Appendicitis, Cholecystitis, diverticulosis, ischemic bowel, pancreatitis, hepatitis, UTI, gastroenteritis, AAA, incarcerated hernia, bowel obstruction, constipation, inflammatory bowel, hepatitis, peptic ulcer disease, splenic infarction, perforated viscus, vulvitis, ovarian torsion, PID, kidney stone, placenta abruption, this is not meant to be an all-inclusive list EKG interpreted by me (3pts min.). @ -None done X-rays interpreted by me (1pt min.). @ -None done CT interpreted by me (1pt min.). @ -CT imaging reveals bilateral intrarenal kidney stones. No evidence of passing stone at this time. No evidence of hydronephrosis. U/S interpreted by me (1pt. min.). @ -None done What testing was considered but not performed or refused? (CT, X-rays, U/S, labs)? Why? @ -None What meds were considered but not given or refused? Why? @ -None Did you discuss the management of the patient with other professionals (professionals i.e. , PA, FORMING PRESS OPERATOR, lab, RT, psych nurse, healthcare social worker, territory sales professional, teacher, complaint evaluation officer, lining caser)? Give summary @ -No Was smoking cessation discussed for >3mins.? @ -No Was critical care preformed (if so, how long)? @ -No Were there social determinants of health that impacted care today? How? (Homelessness, low income, unemployed, alcoholism, drug addiction, transporta tion, low edu. Level, literacy, decrease access to med. care, halfway, rehab)? @ -No Was there de-escalation of care discussed even if they declined (Discuss DNR or withdrawal of care, Hospice)? DNR status @ -No What co-morbidities impacted this encounter? (DM, HTN, Smoking, COPD, CAD, Cancer, CVA, ARF, Chemo, Hep., AIDS, mental health diagnosis, sleep apnea, morbid obesity)? @ -None Was patient admitted / discharged? Hospital course, mention meds given and route, prescriptions, significant lab abnormalities, going to OR and other pertinent info. @ -Patient presents complaining of abdominal pain that started today. Thinks she may have a kidney stone. States it was very severe at home but is since improved since taking CBD. Denies any dysuria or hematuria but does endorse difficulty in urination. Presents for further evaluation. Denies any vaginal discharge or bleeding. We will work the patient up for kidney stone with CT as well as abdominal labs. She denies being . Patient was in agreement this plan. She will be given 1 L fluid bolus. I did offer analgesia medicat ions and antiemetics however patient states pain and nausea is under control at this time after taking CBD at home prior to arrival. Vitals's are within acceptable limits. CT imaging reveals bilateral intrarenal kidney stones. No evidence of passing stone at this time. No evidence of hydronephrosis.Patient's labs remarkable for blood in the urine but otherwise unremarkable. After the patient. She remains asymptomatic at this time. She will be discharged home at this time with starter pack of Zofran and bolus. I spoke with the patient regarding her kidney stones and she understands that if symptoms return is likely related to that. She will be given urology follow-up. She was in agreement this plan. I instructed the patient to follow up with their PCP in the next 1-3 days. I explained that the patient should return to the emergency department if they experience any worsening symptoms. Strict return precautions were discussed with the patient. The patient expressed understanding of these instructions. I answered all questions that the patient had. The patient was discharged home in good condition with their prescriptions and follow up information. Undiagnosed new problem with uncertain prognosis? @ -No Drug Therapy requiring intensive monitoring for toxicity (Heparin, Nitro, Insulin, Cardizem)? @ -No Were any procedures done? @ -No Diagnosis/symptom? @ -Kidney stones Acute, or Chronic, or Acute on Chronic? @ -Acute Uncomplicated (without systemic symptoms) or Complicated (systemic symptoms)? @ -Complicated Side effects of treatment? @ -None Exacerbation, Progression, or Severe Exacerbation] @ -No Poses a threat to life or bodily function? @ -Unlikely - Lab Data Result diagrams: 03/15/24 12:02 03/15/24 12:02 Lab Results 03/15/24 03/15/24 03/15/24 Range/Units 12:02 12:02 12:02 WBC 9.9 (3.8-10.6) k/uL RBC 4.44 (3.80-5.40) m/uL Hgb 14.5 (11.4-16.0) gm/dL Hct 42.4 (34.0-46.0) % MCV 95.5 (80.0-100.0) fL MCH 32.7 (25.0-35.0) pg MCHC 34.3 (31.0-37.0) g/dL RDW 11.5 (11.5-15.5) % Plt Count 273 (150-450) k/uL MPV 8.4 Neutrophils % 85 % Lymphocytes % 9 % Monocytes % 4 % Eosinophils % 1 % Basophils % 0 % Neutrophils # 8.4 H (1.3-7.7) k/uL Lymphocytes # 0.9 L (1.0-4.8) k/uL Monocytes # 0.4 (0-1.0) k/uL Eosinophils # 0.1 (0-0.7) k/uL Basophils # 0.0 (0-0.2) k/uL Sodium 139 (137-145) mmol/L Potassium 4.7 (3.5-5.1) mmol/L Chloride 110 H (98-107) mmol/L Carbon Dioxide 24 (22-30) mmol/L Anion Gap 5 mmol/L BUN 14 (7-17) mg/dL Creatinine 0.83 (0.52-1.04) mg/dL Est GFR (CKD-EPI)AfAm >90 (>60 ml/min/1.73 sqM) Est GFR (CKD-EPI)NonAf 86 (>60 ml/min/1.73 sqM) Glucose 87 (74-99) mg/dL Calcium 9.4 (8.4-10.2) mg/dL Total Bilirubin 0.6 (0.2-1.3) mg/dL AST 21 (14-36) U/L ALT 17 (4-34) U/L Alkaline Phosphatase 37 L (38-126) U/L Total Protein 7.0 (6.3-8.2) g/dL Albumin 4.0 (3.5-5.0) g/dL Amylase 65 (30-110) U/L Lipase 88 (23-300) U/L HCG, Qual Not Detected Urine Color Light Yellow Urine Appearance Cloudy H (Clear) Urine pH 6.0 (5.0-8.0) Ur Specific [place] 1.016 (1.001-1.035) Urine Protein Negative (Negative) Urine Glucose (UA) Negative (Negative) Urine Ketones Negative (Negative) Urine Blood Small H (Negative) Urine Nitrite Negative (Negative) Urine Bilirubin Negative (Negative) Urine Urobilinogen <2.0 (<2.0) mg/dL Ur Leukocyte Esterase Negative (Negative) Urine RBC 11 H (0-5) /hpf Urine WBC 2 (0-5) /hpf Ur Squamous Epith Cells 1 (0-4) /hpf Urine Mucus Moderate H (None) /hpf Disposition Clinical Impression: Kidney stones Disposition: HOME SELF-CARE Condition: Good Instructions (If sedation given, give patient instructions): Kidney Stones (ED) Is patient prescribed a controlled substance at d/c from ED?: No Referrals: Con Allison MD [Primary Care Provider] - 1-[address]antara MD [STAFF PHYSICIAN] - 1-2 days Time of Disposition: 14:15
[2024-03-15 12:37] LABS: Basophils % (A) 0 %; Eosinophils # (A) 0.1 k/uL (0-0.7); Eosinophils % (A) 1 %; HCT 42.4 % (34.0-46.0); HGB 14.5 gm/dL (11.4-16.0); Lymphocytes # (A) 0.9 k/uL (1.0-4.8); Lymphocytes % (A) 9 %; MCH 32.7 pg (25.0-35.0); MCHC 34.3 g/dL (31.0-37.0); MCV 95.5 fL (80.0-100.0); Mean Platelet Volume 8.4; Monocytes # (A) 0.4 k/uL (0-1.0); Monocytes % (A) 4 %; Neutrophils # (A) 8.4 k/uL (1.3-7.7); Neutrophils % (A) 85 %; Platelet Count 273 k/uL (150-450); RBC 4.44 m/uL (3.80-5.40); RDW 11.5 % (11.5-15.5); WBC 9.9 k/uL (3.8-10.6)
[2024-03-15 12:47] LABS: ALT 17 U/L (4-34); AST 21 U/L (14-36); African American GFR (CKD) >90 (>60 ml/min/1.73 sqM); Alkaline Phosphatase 37 U/L (38-126); Amylase 65 U/L (30-110); Anion Gap 5 mmol/L; Blood Urea Nitrogen 14 mg/dL (7-17); Calcium 9.4 mg/dL (8.4-10.2); Carbon Dioxide 24 mmol/L (22-30); Chloride 110 mmol/L (98-107); Glucose 87 mg/dL (74-99); Lipase 88 U/L (23-300); Non-African American GFR(CKD) 86 (>60 ml/min/1.73 sqM); Potassium 4.7 mmol/L (3.5-5.1); Sodium 139 mmol/L (137-145); Total Bilirubin 0.6 mg/dL (0.2-1.3)
[2024-03-15 13:35] LABS: Appearance,Urine Cloudy (Clear); Bilirubin,Urine Negative (Negative); Blood,Urine Small (Negative); Color,Urine Light Yellow; Glucose,Urine (UA) Negative (Negative); Ketones,Urine Negative (Negative); Leukocyte Esterase,Urine Negative (Negative); Mucus,Urine Moderate /hpf; Nitrite,Urine Negative (Negative); Protein,Urine Negative (Negative); RBC,Urine 11 /hpf (0-5); Specific Gravity,Urine 1.016 (1.001-1.035); Squamous Epithelial Cell,Urine 1 /hpf (0-4); Urobilinogen,Urine <2.0 mg/dL (<2.0); WBC,Urine 2 /hpf (0-5)
[2024-03-15 13:45] LABS: HCG,Qualitative Serum Not Detected
--- NOTE | 2024-03-15 13:50 | CT ---
EXAMINATION TYPE: CT abdomen pelvis wo con DATE OF EXAM: 03/15/2024 COMPARISON: None HISTORY: Lt flank pain CT DLP: 502.2 mGycm Examination of the solid and hollow viscera is limited given the lack of contrast. FINDINGS: LUNG BASES: No evidence for nodule. No evidence for infiltrate. LIVER/GB: The gallbladder is unremarkable. No space-occupying hepatic lesion. PANCREAS: No pancreatic mass identified. No inflammatory process seen. SPLEEN: No evidence for splenomegaly. No intrasplenic lesions seen. ADRENALS: No adrenal nodules identified. No evidence for thickening. KIDNEYS: Approximately 6 nonobstructing calculi right kidney measuring up to 5 mm. Left kidney demons trates approximately 7 or 8 calculi measuring less than 6 mm. No preethi hydronephrosis or perinephric stranding consistent. Urinary bladder is grossly unremarkable. No renal masses present. BOWEL: Nonvisualization of the appendix. There appears to be wall thickening involving the ascending colon which could be related to poor distention. Underlying colitis nonspecific type is difficult to exclude. Correlate clinically. Lymph nodes: No evidence for adenopathy greater than 1 cm. Abdominal aorta: Atheromatous changes seen. No evidence for aneurysm. Genital organs: No significant abnormality. Other: No significant abnormality. IMPRESSION: 1. Nonobstructive bilateral nephrolithiasis. 2.There appears to be wall thickening involving the ascending colon which could be related to poor di stention. Underlying nonspecific colitis is difficult to exclude. Correlate clinically.
[2024-03-15] MEDS: ONDANSETRON 4 MG ODT STARTER PACK 2 TAB BTL PO STA (14:23)
[2024-03-15] MEDS: ACET/COD 300 MG/30 MG STARTER PACK 6 TAB BTL PO STA (14:23)
[2024-03-15 14:54] VITALS: BP 125/85; PULSE 70; TEMP 98
== END 2024-03-15 14:33 | disposition home or self-care (01) ==
LOC: EC 10:47
DX: N20.0 Calculus of kidney (principal); Z91.041 Radiographic dye allergy status; Z91.013 Allergy to seafood; Z87.891 Personal history of nicotine dependence
CPT/HCPCS: 36415; 80053; 82150; 83690; 85025; 81001; 84703; 74176; 99284; 96360; 96361; S0119

== ENCOUNTER → 2024-03-24 | Outpatient (CLI) | payer OTHER ==
--- NOTE | 2024-03-25 18:03 | MM ---
Reason for Exam: Screening (asymptomatic). Last screening mammogram was performed 12 month(s) ago. Patient History: Menarche at age 10. Patient has no children. Premenopausal. Currently using Progesterone, beginning at age 33 for 1 year. 1994, Benign Excisional Biopsy on the right side. 10/15/2015, Benign Core Biopsy on the left side. Last menstrual period: 02/13/2024 Risk Values: Geri 5 year model risk: 2.4%. NCI Lifetime model risk: 16.4%. Prior Study Comparison: 12/09/2021 Bilateral Screening Mammogram, [facility]. 07/02/2022 Right MG 3D diag mammo w/cad RT, [facility]. 03/09/2023 Bilateral MG 3D screening mammo w/cad, [facility]. Tissue Density: The breasts are heterogeneously dense, which may obscure small masses. Findings: Analyzed By CAD. The pattern is symmetrical. No significant interval change. No suspicious groups of microcalcifications, spiculated or lobular masses, architectural distortion or other secondary signs of malignancy are mammographically apparent. Overall Assessment: Benign, BI-RAD 2 Management: Screening Mammogram of both breasts in 1 year. A negative mammogram report should not preclude additional follow up of suspicious palpable abnormalities. Patient should continue monthly self breast exam. A clinical breast exam by your physician is recommended on an annual basis and results should be correlated with mammographic findings. Note on Geri scores and lifetime risk: 1. A Geri score greater than 3% is considered moderate risk. If this is the case, consider specialist referral to assess eligibility for a risk reducing agent. 2. If overall lifetime risk for the development of breast cancer is 20% or higher, the patient may qualify for future screening with alternating mammogram and breast MRI. Electronically signed and approved by: Gunnar West D.O. Radiologis
== END | disposition home or self-care (01) ==
LOC: RADMAMWWP 10:28
PROVIDERS: ATTEND Family Medicine
DX: Z12.31 Encounter for screening mammogram for malignant neoplasm of breast (principal)
CPT/HCPCS: 77063; 77067

== ENCOUNTER → 2024-07-18 | Outpatient (CLI) | payer OTHER ==
[2024-07-18 22:16] LABS: Anion Gap 13.1 mmol/L (4.00-12.00); Carbon Dioxide 21.9 mmol/L (21.6-31.8); Potassium 3.9 mmol/L (3.5-5.5)
== END | disposition home or self-care (01) ==
LOC: LABWHC1 14:08
PROVIDERS: ATTEND Urology
DX: N20.0 Calculus of kidney
CPT/HCPCS: 36415; 80051